=== PATIENT | female | born 1940 | race Two or more races ===

== ENCOUNTER 2018-04-04 10:34 | Emergency (ER) | payer OTHER ==
[~2018-04-04] VITALS: Ht 160 cm; Wt 63.0 kg
[2018-04-04] MEDS ORDERED: CARDIZEM120 MG (10:51)
[2018-04-04] MEDS ORDERED: METFORMIN HCL500 MG (10:51)
[2018-04-04] MEDS ORDERED: ATENOLOL100 MG (10:52)
[2018-04-04] MEDS ORDERED: GLIPIZIDE ER10 MG (10:52)
[2018-04-04] MEDS ORDERED: SIMVASTATIN40 MG (10:53)
[2018-04-04] MEDS ORDERED: RELAPHEN PO (10:53)
[2018-04-04] MEDS ORDERED: SYNTHROID50 MCG (10:53)
== END 2018-04-04 13:45 | disposition home or self-care (01) ==
LOC: ER 10:34
DX: M25.551 Pain in right hip (principal)

== ENCOUNTER 2018-10-28 10:55 | Outpatient (CLI) | payer OTHER ==
[~2018-10-28 10:55] MED LIST: ATENOLOL100 MG; CARDIZEM120 MG; GLIPIZIDE ER10 MG; METFORMIN HCL500 MG; RELAPHEN PO; SIMVASTATIN40 MG; SYNTHROID50 MCG
== END 2018-10-28 12:26 | disposition home or self-care (01) ==
LOC: LAB 10:55
DX: D64.89 Other specified anemias (principal); E03.8 Other specified hypothyroidism; E11.9 Type 2 diabetes mellitus without complications; I10 Essential (primary) hypertension; E78.00 Pure hypercholesterolemia, unspecified; N39.0 Urinary tract infection, site not specified; E11.69 Type 2 diabetes mellitus with other specified complication

== ENCOUNTER 2019-01-19 17:44 | Outpatient (CLI) | payer OTHER | END 2019-01-19 17:48 | disposition home or self-care (01) | LOC: RAD 17:44 | DX: J44.1 Chronic obstructive pulmonary disease with (acute) exacerbation (principal) ==

== ENCOUNTER → 2019-02-18 10:21 | Outpatient (CLI) | payer OTHER | END | disposition home or self-care (01) | LOC: LAB 10:21 → RAD 10:21 | DX: E11.39 Type 2 diabetes mellitus with other diabetic ophthalmic complication (principal); I15.8 Other secondary hypertension; D68.32 Hemorrhagic disorder due to extrinsic circulating anticoagulants; D69.8 Other specified hemorrhagic conditions; I10 Essential (primary) hypertension ==

== ENCOUNTER 2019-06-23 11:07 | Outpatient (CLI) | payer OTHER | END 2019-06-23 11:16 | disposition home or self-care (01) | LOC: LAB 11:07 | DX: D64.89 Other specified anemias (principal); I10 Essential (primary) hypertension; E78.00 Pure hypercholesterolemia, unspecified; N39.0 Urinary tract infection, site not specified; E03.8 Other specified hypothyroidism; E11.69 Type 2 diabetes mellitus with other specified complication; E11.29 Type 2 diabetes mellitus with other diabetic kidney complication; Z12.31 Encounter for screening mammogram for malignant neoplasm of breast; R19.5 Other fecal abnormalities ==

== ENCOUNTER → 2019-06-29 11:55 | Outpatient (CLI) | payer OTHER | END | disposition home or self-care (01) | LOC: LAB 11:55 | DX: D64.89 Other specified anemias (principal); I10 Essential (primary) hypertension; E78.00 Pure hypercholesterolemia, unspecified; N39.0 Urinary tract infection, site not specified; E03.8 Other specified hypothyroidism; E11.69 Type 2 diabetes mellitus with other specified complication; E11.29 Type 2 diabetes mellitus with other diabetic kidney complication; Z12.31 Encounter for screening mammogram for malignant neoplasm of breast; R19.5 Other fecal abnormalities; E55.9 Vitamin D deficiency, unspecified ==

== ENCOUNTER 2019-10-13 10:45 | Outpatient (CLI) | payer OTHER | END 2019-10-13 10:53 | disposition home or self-care (01) | LOC: LAB 10:45 | DX: D64.89 Other specified anemias (principal); I10 Essential (primary) hypertension; E11.9 Type 2 diabetes mellitus without complications; E78.00 Pure hypercholesterolemia, unspecified; N39.0 Urinary tract infection, site not specified; E03.8 Other specified hypothyroidism ==

== ENCOUNTER 2020-03-16 09:35 | Outpatient (CLI) | payer OTHER | END 2020-03-16 09:43 | disposition home or self-care (01) | LOC: LAB 09:35 | PROVIDERS: ATTEND Internal Medicine | DX: D64.89 Other specified anemias (principal); E03.8 Other specified hypothyroidism; I10 Essential (primary) hypertension; E11.9 Type 2 diabetes mellitus without complications; E78.00 Pure hypercholesterolemia, unspecified; N39.0 Urinary tract infection, site not specified ==

== ENCOUNTER 2020-03-16 11:11 | Outpatient (CLI) | payer OTHER | END 2020-03-16 11:14 | disposition home or self-care (01) | LOC: RAD 11:11 | PROVIDERS: ATTEND Internal Medicine | DX: M17.0 Bilateral primary osteoarthritis of knee (principal) ==

== ENCOUNTER → 2020-04-19 | Outpatient (CLI) | payer OTHER | END | disposition home or self-care (01) | LOC: MRI 14:15 | PROVIDERS: ATTEND Internal Medicine | DX: M17.0 Bilateral primary osteoarthritis of knee (principal); M22.42 Chondromalacia patellae, left knee; M22.41 Chondromalacia patellae, right knee | CPT/HCPCS: 73721 ==

== ENCOUNTER 2020-07-21 12:06 | Outpatient (CLI) | payer OTHER | END 2020-07-21 12:13 | disposition home or self-care (01) | LOC: LAB 12:06 | PROVIDERS: ATTEND Internal Medicine | DX: N39.0 Urinary tract infection, site not specified (principal); B96.29 Other Escherichia coli [E. coli] as the cause of diseases classified elsewhere; Z12.31 Encounter for screening mammogram for malignant neoplasm of breast ==

== ENCOUNTER 2020-08-05 13:00 | Outpatient (CLI) | payer OTHER | END 2020-08-05 13:19 | disposition home or self-care (01) | LOC: MAMO-SONO 13:00 | PROVIDERS: ATTEND Internal Medicine | DX: Z12.31 Encounter for screening mammogram for malignant neoplasm of breast (principal); N63.11 Unspecified lump in the right breast, upper outer quadrant ==

== ENCOUNTER 2021-05-09 14:19 | Outpatient (CLI) | payer OTHER | END 2021-05-09 14:20 | disposition home or self-care (01) | LOC: LAB 14:19 | PROVIDERS: ATTEND Surgery | DX: N18.9 Chronic kidney disease, unspecified (principal) ==

== ENCOUNTER 2021-06-19 12:13 | Outpatient (CLI) | payer OTHER | END 2021-06-19 12:24 | disposition home or self-care (01) | LOC: LAB 12:13 | PROVIDERS: ATTEND Radiology Diagnostic Radiology | DX: N28.89 Other specified disorders of kidney and ureter (principal) ==

== ENCOUNTER 2021-08-07 10:12 | Outpatient (CLI) | payer OTHER | END 2021-08-07 10:18 | disposition home or self-care (01) | LOC: MAMO-SONO 10:12 | PROVIDERS: ATTEND Surgery | DX: C50.011 Malignant neoplasm of nipple and areola, right female breast (principal); N60.11 Diffuse cystic mastopathy of right breast; N60.12 Diffuse cystic mastopathy of left breast ==

== ENCOUNTER 2021-09-20 07:13 | Outpatient (CLI) | payer OTHER | END 2021-09-20 07:14 | disposition home or self-care (01) | LOC: OFIC 805 07:13 → NUCLEAR 07:13 → OFIC 805 07:14 | PROVIDERS: ATTEND Internal Medicine | DX: M13.89 Other specified arthritis, multiple sites (principal) | CPT/HCPCS: 78306; A9503 ==

== ENCOUNTER 2021-09-29 06:29 | Day surgery (SDC) | payer OTHER ==
[~2021-09-29] VITALS: Ht 160 cm; Wt 64.9 kg
== END 2021-09-29 13:20 | disposition home or self-care (01) ==
LOC: CIR.AMB 06:29
PROVIDERS: ATTEND Surgery
DX: C50.011 Malignant neoplasm of nipple and areola, right female breast (principal); E78.00 Pure hypercholesterolemia, unspecified; Z87.891 Personal history of nicotine dependence; E03.9 Hypothyroidism, unspecified; F41.9 Anxiety disorder, unspecified; M19.90 Unspecified osteoarthritis, unspecified site; M51.36 Other intervertebral disc degeneration, lumbar region; I87.2 Venous insufficiency (chronic) (peripheral); Z79.84 Long term (current) use of oral hypoglycemic drugs; E11.9 Type 2 diabetes mellitus without complications; Z20.822 Contact with and (suspected) exposure to COVID-19

== ENCOUNTER 2021-11-07 08:12 | Outpatient (CLI) | payer OTHER | END 2021-11-07 08:13 | disposition home or self-care (01) | LOC: NUCLEAR 08:12 | PROVIDERS: ATTEND Internal Medicine Hematology & Oncology | DX: C50.411 Malignant neoplasm of upper-outer quadrant of right female breast (principal); Z17.0 Estrogen receptor positive status [ER+] | CPT/HCPCS: 78812; A9552 ==

== ENCOUNTER 2022-03-08 11:06 | Outpatient (CLI) | payer OTHER | END 2022-03-08 11:14 | disposition home or self-care (01) | LOC: MRI 11:06 | PROVIDERS: ATTEND Neuromusculoskeletal Medicine & OMM | DX: F03.90 Unspecified dementia, unspecified severity, without behavioral disturbance, psychotic disturbance, mood disturbance, and anxiety (principal); F09 Unspecified mental disorder due to known physiological condition | CPT/HCPCS: 70551 ==

== ENCOUNTER → 2022-04-16 07:08 | Outpatient (CLI) | payer OTHER | END | disposition home or self-care (01) | LOC: NUCLEAR 07:00 | PROVIDERS: ATTEND Internal Medicine Cardiovascular Disease | DX: I20.9 Angina pectoris, unspecified (principal); I25.10 Atherosclerotic heart disease of native coronary artery without angina pectoris; E11.9 Type 2 diabetes mellitus without complications; I11.9 Hypertensive heart disease without heart failure; E78.2 Mixed hyperlipidemia | CPT/HCPCS: 78454; 93017; A9500; J0153 ==

== ENCOUNTER 2022-06-13 13:13 | Emergency (ER) | payer OTHER ==
[~2022-06-13] VITALS: Ht 157.5 cm; Wt 65.8 kg
== END 2022-06-13 20:02 | disposition home or self-care (01) ==
LOC: ER 13:13
DX: I16.9 Hypertensive crisis, unspecified (principal); I10 Essential (primary) hypertension; E11.65 Type 2 diabetes mellitus with hyperglycemia; Z79.84 Long term (current) use of oral hypoglycemic drugs

== ENCOUNTER 2022-06-18 17:50 | Emergency (ER) | payer OTHER ==
[~2022-06-18] VITALS: Ht 154.9 cm; Wt 67.1 kg
[2022-06-18] MEDS ORDERED: LANTUS SOL100 UNIT/1 (18:21)
== END 2022-06-18 21:27 | disposition home or self-care (01) ==
LOC: ER 17:50
DX: G56.01 Carpal tunnel syndrome, right upper limb (principal); E11.9 Type 2 diabetes mellitus without complications; Z79.4 Long term (current) use of insulin; Z79.84 Long term (current) use of oral hypoglycemic drugs

== ENCOUNTER → 2022-10-17 10:32 | Outpatient (CLI) | payer OTHER ==
[~2022-10-17 10:32] MED LIST changes: +LANTUS SOL100 UNIT/1
== END | disposition home or self-care (01) ==
LOC: LAB 10:32
PROVIDERS: ATTEND Internal Medicine
DX: D64.9 Anemia, unspecified (principal); E11.9 Type 2 diabetes mellitus without complications; E78.00 Pure hypercholesterolemia, unspecified; N39.0 Urinary tract infection, site not specified

== ENCOUNTER 2022-11-05 07:48 | Outpatient (CLI) | payer OTHER | END 2022-11-05 07:52 | disposition home or self-care (01) | LOC: LAB 07:48 | PROVIDERS: ATTEND Internal Medicine | DX: N39.0 Urinary tract infection, site not specified (principal); E78.00 Pure hypercholesterolemia, unspecified; E03.8 Other specified hypothyroidism; E11.69 Type 2 diabetes mellitus with other specified complication ==

== ENCOUNTER 2022-11-05 08:05 | Outpatient (CLI) | payer OTHER | END 2022-11-05 08:06 | disposition home or self-care (01) | LOC: NUCLEAR 08:05 | PROVIDERS: ATTEND Internal Medicine | DX: I82.409 Acute embolism and thrombosis of unspecified deep veins of unspecified lower extremity (principal) ==

== ENCOUNTER 2023-07-11 14:23 | Outpatient (CLI) | payer OTHER | END 2023-07-11 14:26 | disposition home or self-care (01) | LOC: RAD 14:23 | PROVIDERS: ATTEND Internal Medicine | DX: R22.32 Localized swelling, mass and lump, left upper limb (principal) ==

== ENCOUNTER 2023-08-16 17:00 | Emergency (ER) | payer OTHER ==
[~2023-08-16] VITALS: Ht 160 cm; Wt 72.6 kg
[2023-08-16] MEDS ORDERED: KETOROLAC TROMETHAMINE 30 MG VIAL IM STA (17:41)
== END 2023-08-16 18:52 | disposition home or self-care (01) ==
LOC: ER 17:00
DX: M25.552 Pain in left hip (principal)
CPT/HCPCS: 73502; 96372; 99283; J1885

== ENCOUNTER 2023-09-02 10:07 | Outpatient (CLI) | payer OTHER ==
[2023-09-02 12:34] LABS: CREATININE SERUM 0.91 mg/dL (0.55-1.02)
== END 2023-09-02 10:08 | disposition home or self-care (01) ==
LOC: LAB 10:07
PROVIDERS: ATTEND Radiology Diagnostic Radiology
DX: F09 Unspecified mental disorder due to known physiological condition (principal); F03.90 Unspecified dementia, unspecified severity, without behavioral disturbance, psychotic disturbance, mood disturbance, and anxiety

== ENCOUNTER 2023-09-03 09:08 | Outpatient (CLI) | payer OTHER | END 2023-09-03 09:23 | disposition home or self-care (01) | LOC: TOM 09:08 | PROVIDERS: ATTEND Neuromusculoskeletal Medicine & OMM | DX: F09 Unspecified mental disorder due to known physiological condition (principal); F03.90 Unspecified dementia, unspecified severity, without behavioral disturbance, psychotic disturbance, mood disturbance, and anxiety; I65.22 Occlusion and stenosis of left carotid artery | CPT/HCPCS: 70491; 70551; Q9965 ==

== ENCOUNTER 2023-09-13 08:30 | Emergency (ER) | payer OTHER ==
[~2023-09-13] VITALS: Ht 160 cm; Wt 65.8 kg
[2023-09-13] MEDS ORDERED: DIPHENHYDRAMINE HCL 50 MG/ML VIAL 1ML IM STA (09:03)
[2023-09-13] MEDS ORDERED: METHYLPREDNISOLONE SOD SUCC 40 MG VIAL IV STA (09:04)
[2023-09-13] MEDS ORDERED: FAMOTIDINE/PF 20 MG/2 ML VIAL IV PUSH STA (09:04)
== END 2023-09-13 11:07 | disposition home or self-care (01) ==
LOC: ER 08:30
DX: R22.0 Localized swelling, mass and lump, head (principal); T50.8X5A Adverse effect of diagnostic agents, initial encounter; E11.9 Type 2 diabetes mellitus without complications; I10 Essential (primary) hypertension
CPT/HCPCS: 96365; 96372; 99282; J1200; J3490